=== PATIENT | female | born 1990 | race Caucasian/White ===

== ENCOUNTER 2021-07-11 13:14 | Outpatient (CLI) | payer SELFPAY | END 2021-07-11 15:37 | disposition home or self-care (01) | LOC: GENOP 13:14 | DX: O47.1 False labor at or after 37 completed weeks of gestation (principal); O99.891 Other specified diseases and conditions complicating pregnancy; O21.2 Late vomiting of pregnancy; O99.613 Diseases of the digestive system complicating pregnancy, third trimester; K80.20 Calculus of gallbladder without cholecystitis without obstruction; R10.10 Upper abdominal pain, unspecified; Z3A.32 32 weeks gestation of pregnancy | CPT/HCPCS: 81001; 82731; 96360; 96361; J7120 ==